=== PATIENT | male | born 1975 | race Caucasian/White ===

== ENCOUNTER → 2017-04-22 | Outpatient (CLI) | payer BC ==
[~2017-04-22] MED LIST: ALL DAY ALLERGY10 MG PO; FLONASE ALLERG9.9 ML; ZESTRIL40 MG PO
--- NOTE | ~2017-04-22 | US115 ---
[facility]. [facility] A Service of [facility] RADIOLOGY TEXT RESULTS PATIENT: ERNIE VINSON LOCATION: [facility] : 79 UNIT #: [id number] AGE: [address]: Giorgio Velez MD SEX: M ORDER DR: [id number] [address] [address] [id number] O MR#: [id number] Acc #: [id number] NAME: ERNIE VINSON : 1975 SEX: M STUDY DATE/TIME: 04/22/2017 11:35 UNIT: [facility] ROOM: STUDY DESCRIPTION: US Scrotum and Contents Attending Physician: Giorgio Velez M.D. Ordering Physician: Giorgio Velez M.D. MEDICAL IMAGING REPORT This report is preliminary unless electronic signature is present. EXAM Scrotal ultrasound. HISTORY Mass left testicle. Patient states there is a hard knot in his left groin testicle area. States there was no trauma to this area. Noticed bump on Friday 04/20. TECHNIQUE Real-time ultrasonography of scrotal contents performed. Werner-scale, color Doppler, Doppler pulse-wave interrogation utilized. FINDINGS The right testis measures 2.36 cm x 2.70 cm x 3.87 cm. There is a small right hydrocele. There is arterial and venous flow in the right testis. Testis is normal in contour and echotexture with no testicular mass lesion seen. The right epididymis contains a cyst measuring 6.2 mm x 4.5 mm x 4.2 mm. The left testis measures 2.16 cm x 2.53 cm x 3.59 cm. It is normal in contour and echotexture. No testicular mass lesion. Arterial and venous flow in the left testis. Minimal left scrotal fluid. Left epididymis unremarkable. In the area of palpable abnormality in the left groin region, there is a persistent area of heterogeneous echotexture measuring approximately 3.4 cm x 1.5 cm x 1.5 cm. Exact etiology unclear. It does not show significant vascularity. It does not have the typical ultrasound signature of bowel loops. Given the reported location in the left groin region, I would favor that this is some form of hernia probably containing fat given the overall appearance. However, the exact etiology is unclear. Please correlate with clinical examination. Consider further assessment with CT. This structure appears to be distinct from the left testis and left epididymis. IMPRESSION 1. The testes are normal in size, contour and echotexture. No STS. [facility] A Service of [facility] RADIOLOGY TEXT RESULTS PATIENT: ERNIE VINSON LOCATION: [facility] : 79 UNIT #: [id number] AGE: [address]: Giorgio Velez MD SEX: M ORDER DR: testicular mass lesion. Arterial and venous flow in bilateral testes. 2. Small right hydrocele. Trace fluid in the left hemiscrotum. The bilateral epididymides notable only for a right epididymal head cyst. 3. In area of palpable abnormality indicated by the patient in left groin, there is a persistent heterogeneous generally hypoechoic structure measuring 3.4 cm x 1.4 cm x 1.5 cm. Given appearance and location, I would favor that this is fat in a small hernia sac. However, precise etiology is unclear. Further evaluation, in absence of prior studies for comparison, with CT examination would be recommended. Please correlate with the patient's clinical examination. STAT * RESULT Dictated by... Umair Josue M.D. THIS IS AN ELECTRONICALLY VERIFIED REPORT Umair Josue M.D. at 04/27/2017 12:58 PM ANGELA/phillip TD: 04/24/2017 13:54 JOB #: [id number] MEDICAL IMAGING REPORT Page 1 of 1
== END | disposition home or self-care (01) ==
LOC: SGUS 11:30
DX: N50.89 Other specified disorders of the male genital organs (principal); N43.3 Hydrocele, unspecified; R93.8 Abnormal findings on diagnostic imaging of other specified body structures
CPT/HCPCS: 76870